=== PATIENT | female | born 1975 | race Caucasian/White ===

== ENCOUNTER 2018-07-19 15:13 | Emergency (ER) | payer MEDICARE, OTHER ==
[~2018-07-19] VITALS: Ht 144.8 cm; Wt 49.0 kg
[~2018-07-19 15:13] MED LIST: ARIP30 PO; CEPH500 PO; CLON.5 PO; DEXA.5 PO; ESTR2 PO; Fludrocortison0.1 MG PO; LEVSOD50 PO; Prozac20 MG PO; TOPI15C PO
== END 2018-07-19 16:11 | disposition home or self-care (01) ==
LOC: ER 15:13
DX: R56.9 Unspecified convulsions (principal); I95.9 Hypotension, unspecified; Z79.899 Other long term (current) drug therapy
CPT/HCPCS: 82947; 93005; 93010; 99284-25

== ENCOUNTER 2018-11-09 15:15 | Emergency (ER) | payer MEDICARE, OTHER ==
[~2018-11-09] VITALS: Ht 144.8 cm; Wt 49.9 kg
[2018-11-09 16:09] LABS: BASOPHILS ABSOLUTE AUTO 0.09 K/mm3 (0.00-0.23); BASOPHILS PERCENT AUTO 2 % (0-2); EOSINOPHILS ABSOLUTE AUTO 0.05 K/mm3 (0.00-0.68); EOSINOPHILS PERCENT AUTO 1 % (0-6); Hematocrit 37.1 % (33.0-51.0); Hemoglobin 12.3 g/dL (11.5-16.0); IMMATURE GRAN ABSOLUTE AUTO 0.01 K/mm3 (0.00-0.10); IMMATURE GRAN PERCENT AUTO 0 % (0-1); LYMPHOCYTES ABSOLUTE AUTO 2.02 K/mm3 (0.84-5.20); LYMPHOCYTES PERCENT AUTO 37 % (21-46); MONOCYTES PERCENT AUTO 6 % (4-13); Mean Corpuscular HGB 35.3 pg (26.0-34.0); Mean Corpuscular HGB Conc 33.2 g/dL (31.5-36.5); Mean Corpuscular Volume 107 fL (80-100); Mean Platelet Volume 10.3 fL (9.1-12.4); NEUTROPHILS ABSOLUTE AUTO 2.98 K/mm3 (1.96-9.15); NEUTROPHILS PERCENT AUTO 55 % (41-73); Platelet Count 190 K/mm3 (150-400); RDW Coefficient Variation 12.9 % (11.7-14.2); RDW Standard Deviation 50.4 fL (35.1-46.3); Red Blood Cell Count 3.48 M/mm3 (3.80-5.20); White Blood Cell Count 5.45 K/mm3 (4.00-11.30)
[2018-11-09 16:22] LABS: Source, Urine Catheter
[2018-11-09 16:28] LABS: International Normalized Ratio 0.93; Prothrombin Time Results 9.6 Sec (9.7-11.5)
[2018-11-09 16:28] LABS: Bilirubin, Urine Neg (Neg); Blood, Urine Neg (Neg); Glucose Qualitative, Urine Neg (Neg); Ketones, Urine Neg (Neg); Leukocyte Esterase, Urine Neg (Neg); Nitrite, Urine Neg (Neg); Protein, Urine Neg (Neg); Urobilinogen, Urine NORM (Normal)
[2018-11-09 16:29] LABS: Alanine Aminotransfer (ALT/SGP 22 U/L (12-78); Albumin, Blood 3.2 g/dL (3.4-5.0); Albumin/Globulin Ratio 0.9 (0.8-1.8); Alk Phos 47 U/L (50-136); Anion Gap 6 mmol/L (6-16); Aspartate Aminotrans (AST/SGOT 18 U/L (12-37); Bilirubin, Total 0.2 mg/dL (0.1-1.0); Blood Urea Nitrogen 17 mg/dL (8-24); Bun/Creatinine Ratio 25.3 (12.0-20.0); CO2, Blood 25 mmol/L (21-32); Calcium, Blood 8.6 mg/dL (8.5-10.1); Chloride, Blood 111 mmol/L (98-108); Creatinine, Blood 0.67 mg/dL (0.40-1.00); Globulin, Blood 3.4 g/dL (2.2-4.0); Glomerular Filtration Rate >60 (60-); Glucose, Blood 98 mg/dL (70-99); Potassium, Blood 3.8 mmol/L (3.5-5.5); Sodium, Blood 142 mmol/L (136-145); Total Protein, Blood 6.6 g/dL (6.4-8.2)
[2018-11-09 16:53] LABS: Appearance, Urine Clear (Clear); Color, Urine Yellow (P-Yellow)
== END 2018-11-09 17:12 | disposition home or self-care (01) ==
LOC: ER 15:15
PROVIDERS: Emergency Medicine; Physician Assistant
DX: R53.1 Weakness (principal); F20.9 Schizophrenia, unspecified; F31.9 Bipolar disorder, unspecified; Z79.899 Other long term (current) drug therapy
CPT/HCPCS: 36415; 70450; 71045; 80053; 81003; 85025; 85610; 93005; 93010; 99285-25; P9612

== ENCOUNTER 2019-09-02 18:00 | Inpatient (IN) | payer MEDICARE, OTHER ==
[~2019-09-02] VITALS: Ht 154.9 cm; Wt 45.1 kg
[2019-09-02 18:35] LABS: BASOPHILS ABSOLUTE AUTO 0.09 K/mm3 (0.00-0.23); BASOPHILS PERCENT AUTO 2 % (0-2); EOSINOPHILS ABSOLUTE AUTO 0.06 K/mm3 (0.00-0.68); EOSINOPHILS PERCENT AUTO 1 % (0-6); Hemoglobin 12.2 g/dL (11.5-16.0); IMMATURE GRAN ABSOLUTE AUTO 0.01 K/mm3 (0.00-0.10); IMMATURE GRAN PERCENT AUTO 0 % (0-1); LYMPHOCYTES ABSOLUTE AUTO 2.03 K/mm3 (0.84-5.20); LYMPHOCYTES PERCENT AUTO 45 % (21-46); MONOCYTES ABSOLUTE AUTO 0.28 K/mm3 (0.16-1.47); MONOCYTES PERCENT AUTO 6 % (4-13); Mean Corpuscular HGB 34.7 pg (26.0-34.0); Mean Corpuscular Volume 105 fL (80-100); Mean Platelet Volume 10.1 fL (9.1-12.4); NEUTROPHILS ABSOLUTE AUTO 2.03 K/mm3 (1.96-9.15); NEUTROPHILS PERCENT AUTO 45 % (41-73); Platelet Count 202 K/mm3 (150-400); RDW Coefficient Variation 12.7 % (11.7-14.2); RDW Standard Deviation 49.2 fL (35.1-46.3); Red Blood Cell Count 3.52 M/mm3 (3.80-5.20)
[2019-09-02] MEDS ORDERED: CLON.5 PO (18:43)
[2019-09-02 18:54] LABS: Alanine Aminotransfer (ALT/SGP 29 U/L (12-78); Albumin, Blood 3.2 g/dL (3.4-5.0); Albumin/Globulin Ratio 0.9 (0.8-1.8); Alk Phos 66 U/L (50-136); Anion Gap 4 mmol/L (6-16); Aspartate Aminotrans (AST/SGOT 20 U/L (12-37); Bilirubin, Total 0.2 mg/dL (0.1-1.0); Blood Urea Nitrogen 15 mg/dL (8-24); Bun/Creatinine Ratio 17.7 (12.0-20.0); CO2, Blood 26 mmol/L (21-32); Calcium, Blood 8.8 mg/dL (8.5-10.1); Chloride, Blood 110 mmol/L (98-108); Creatinine, Blood 0.85 mg/dL (0.40-1.00); Globulin, Blood 3.7 g/dL (2.2-4.0); Glomerular Filtration Rate >60 (60-); Glucose, Blood 97 mg/dL (70-99); Magnesium, Blood 2.1 mg/dL (1.6-2.4); Potassium, Blood 3.7 mmol/L (3.5-5.5); Sodium, Blood 140 mmol/L (136-145); Total Protein, Blood 6.9 g/dL (6.4-8.2)
[2019-09-02] MEDS ORDERED: ACET325 PO (21:47)
[2019-09-02] MEDS ORDERED: IBUP400 PO (21:47)
[2019-09-02] MEDS ORDERED: FERSU300 PO (21:49)
[2019-09-02] MEDS ORDERED: MIRALAX17 GM PO (21:50)
--- NOTE | 2019-09-02 22:00 | NUR ---
ADMISSION PT ARRIVES TO PCU 7 AT APPROXIMATELY 2100 ACCOMPANIED BY HER PARENTS. PT HAS DOWN SYNDROME AND IS ALERT AND ORIENTED TO SELF, MONTH, FAMILY AND FOLLOWING DIRECTIONS. PARENTS ARE PRIMARY CAREGIVERS AND MOTHER IS HEALTHCARE [employer]OXY. PT IS SLID TO HOSPITAL BED, BUT IS ABLE TO AMBULATE WITH ONE PERSON ASSIST. MOTHER STATES THAT PATIENT FALLS FREQUENTLY AT HOME DUE TO ISSUES WITH SPINE THAT CAUSE PATIENT TO WALK BENT AT THE WAIST, STATES THAT SHE DOES NOT WALK WITH ASSISTIVE DEVICES. MOTHER STATES THAT THE PATIENT HAS MULTIPLE PETIT MAL SEIZURES THROUGHOUT THE DAY, BUT DOES NOT FREQUENTLY HAVE GRAND MAL SEIZURES. STATES THAT SYMPTOMS OF HER PETIT MAL SEIZURES CAUSE HER TO BE "SPACEY" OR "ZONE OUT". PATIENT AND FAMILY ORIENTED TO ROOM, CALL LIGHT SYSTEM AND RAPID RESPONSE TEAM NOTIFICATION. ENCOURAGED TO CALL FOR ALL NEEDS AND IF ANY SEIZURE-LIKE ACTIVITY NOTED. PT STRAIGHT CATHETERIZED PER PHYSICIAN ORDER. DR MORALES CONTACTED AND ASKED IF PARENTS COULD GIVE PATIENT MEDICATIONS FROM HOME THAT WERE BROUGHT IN- PHYSICIAN OK'D FOR REGULAR NIGHT TIME MEDS TO BE GIVEN AT THIS TIME- MEDS GIVEN WERE ABILIFY, KLONIPIN, AND TOPIRAMATE. DR MORALES IN TO ASSESS PATIENT AT THIS TIME. WILL CONTINUE WITH ADMISSION AND MONITORING. BE IN LOW POSITION, CALL LIGHT IN REACH. BED ALARM SET FOR SAFETY.
[2019-09-02 22:59] LABS: Source, Urine Catheter
[2019-09-02 23:07] LABS: Bilirubin, Urine Neg (Neg); Blood, Urine Neg (Neg); Glucose Qualitative, Urine Neg (Neg); Ketones, Urine Neg (Neg); Leukocyte Esterase, Urine Neg (Neg); Nitrite, Urine Neg (Neg); Protein, Urine Neg (Neg); Urobilinogen, Urine NORM (Normal)
[2019-09-02 23:17] LABS: Appearance, Urine Clear (Clear); Color, Urine Yellow (P-Yellow)
[2019-09-03 03:50] LABS: Hematocrit 34.5 % (33.0-51.0); Hemoglobin 11.5 g/dL (11.5-16.0); Mean Corpuscular HGB Conc 33.3 g/dL (31.5-36.5); Mean Corpuscular Volume 105 fL (80-100); Mean Platelet Volume 10.2 fL (9.1-12.4); Platelet Count 166 K/mm3 (150-400); RDW Coefficient Variation 12.7 % (11.7-14.2); RDW Standard Deviation 49.3 fL (35.1-46.3); Red Blood Cell Count 3.29 M/mm3 (3.80-5.20); White Blood Cell Count 3.82 K/mm3 (4.00-11.30)
[2019-09-03 04:17] LABS: Alanine Aminotransfer (ALT/SGP 26 U/L (12-78); Albumin, Blood 2.8 g/dL (3.4-5.0); Albumin/Globulin Ratio 0.9 (0.8-1.8); Alk Phos 53 U/L (50-136); Anion Gap 7 mmol/L (6-16); Aspartate Aminotrans (AST/SGOT 17 U/L (12-37); Bilirubin, Total 0.3 mg/dL (0.1-1.0); Blood Urea Nitrogen 13 mg/dL (8-24); Bun/Creatinine Ratio 19.7 (12.0-20.0); CO2, Blood 25 mmol/L (21-32); Chloride, Blood 111 mmol/L (98-108); Creatinine, Blood 0.66 mg/dL (0.40-1.00); Globulin, Blood 3.1 g/dL (2.2-4.0); Glomerular Filtration Rate >60 (60-); Glucose, Blood 89 mg/dL (70-99); Potassium, Blood 3.7 mmol/L (3.5-5.5); Sodium, Blood 143 mmol/L (136-145); Total Protein, Blood 5.9 g/dL (6.4-8.2)
--- NOTE | 2019-09-03 06:45 | NUR ---
SHIFT SUMMARY PT REMAINS ALERT AND ORIENTED TO SELF AND FAMILY. VSS. VERY PLEASANT AND COOPERATIVE WITH CARE. NO ACUTE CHANGES THROUGHOUT THE NIGHT. PT HAS RESTED WELL, WAKING EASILY FOR CARE. FATHER HAS REMAINED AT BEDSIDE THROUGHOUT THE SHIFT. NO SEIZURE- LIKE ACTIVITY NOTED THROUGHOUT THE NIGHT. NS CONTINUES TO INFUSE @ 75 ML/HR FOR ONE LITER, PT TOLERATING WELL. PT CONTINUES TO HAVE IMPAIRED GAIT AND REQUIRES ONE PERSON ASSIST WITH AMBULATION. NO OTHER CHANGES NOTED FROM INITIAL ASSESSMENT. WILL CONTINUE TO MONITOR AND REPORT TO ONCOMING SHIFT RN. BED IN LOW POSITION, CALL LIGHT IN REACH. BED ALARM SET FOR SAFETY.
--- NOTE | 2019-09-03 18:08 | NUR ---
SHIFT SUMMARY PT ALERT AND ORIENTED TO SELF AND FAMILY. PT ABLE TO FOLLOW SIMPLE DIRECTIONS. VS STABLE. O2 SATS HAVE REMAIN ABOVE 90% ON RA. BP STABLE. PT LETHARGIC TODAY PER FAMILY. DISCUSSED THIS WITH DR. TEIXEIRA AND HE REPORTS IT IS A SIDE EFFECT OF KEPPRA. PT HAD EEG TODAY. WILL CONTINUE TO MONITOR AND REPORT TO ONCOMING RN. CALL LIGHT IN REACH. FAMILY AT BEDSIDE.
--- NOTE | 2019-09-04 06:07 | NUR ---
SHIFT SUMMARY PT HAS REMAINED AT BASELINE MENTATION THROUGHOUT THE NIGHT. VSS. VERY PLEASANT AND COOPERATIVE WITH CARE. PT FATHER HAS REMAINED AT BEDSIDE. FAMILY CONCERNED AT START OF SHIFT WITH MENTATION CHANGES THROUGHOUT THE AFTERNOON, STATING THAT THE PATIENT HAD BEEN HALLUCINATING AND AGITATED. FAMILY PROVIDED INFORMATION ON MEDICATIONS AND POTENTIAL SIDE EFFECTS. ALSO ENCOURAGED TO DIRECT QUESTIONS ABOUT CERTAIN MEDICATIONS AND INTERACTIONS TO THE PHYSICIAN UPON ROUNDING. PT HAS HAD NO SEIZURE ACTIVITY NOTED THROUGHOUT THE NIGHT. NO SIGNS OR REPORTS OF HALLUCINATIONS THROUGHOUT SHIFT. PT CONTINUES TO AMBULATE WITH ONE PERSON ASSIST TO BATHROOM. NO OTHER CHANGES NOTED FROM INITIAL ASSESSMENT. WILL CONTINUE TO MONITOR AND REPORT TO ONCOMING SHIFT RN. BED IN LOW POSITION, CALL LIGHT IN REACH. BED ALARM SET FOR SAFETY.
--- NOTE | 2019-09-04 08:00 | NUR ---
pt laying in bed family in room, she is a/ox2, pleasant and cooperative with care, follows commands well, denies pain, lungs are clear t/o, resp even and unlabored, no cough noted, is currently on r/a, hrr, tele in place running sr per monitor, see strip, no jude noted, ppp+2, cap refill <3sec, vs stable, afebrile, iv site is clear and patent, btx4, abd flat soft nontender, voids without diff, skin c/w/d, maew, jackie, call light in reach.
[2019-09-04] MEDS ORDERED: LEVE500 PO (14:17)
--- NOTE | 2019-09-04 15:42 | NUR ---
pt has been discharged to home, went over discharge instructions with her parents they verbalized understanding, new medication was faxed to [facility], iv removed intact, left via wheelchair with family and automobile parts assembler in attendence.
== END 2019-09-04 15:03 | disposition home or self-care (01) | DRG 101 ==
LOC: ER 18:00 → PCU 19:37 → ER 19:37 → PCU 20:51
PROVIDERS: Emergency Medicine; ADMIT Internal Medicine
DX: G40.409 Other generalized epilepsy and epileptic syndromes, not intractable, without status epilepticus (principal); F20.9 Schizophrenia, unspecified; F31.9 Bipolar disorder, unspecified; M48.00 Spinal stenosis, site unspecified; Q90.9 Down syndrome, unspecified
CPT/HCPCS: 36415; 70450; 71046; 80053; 80201; 81003; 83735; 84484; 85025; 85027; 93005; 93010; 95819; 99285-25; J1953; J7030

== ENCOUNTER 2020-08-04 13:10 | Emergency (ER) | payer MEDICARE, OTHER ==
[~2020-08-04] VITALS: Ht 147.3 cm; Wt 49.0 kg
[~2020-08-04 13:10] MED LIST changes: +ACET325 PO; -ARIP30 PO; -CLON.5 PO; -ESTR2 PO; +FERSU300 PO; +IBUP400 PO; +LEVE500 PO; +MIRALAX17 GM PO; +NAYZILAM5 MG/0.1 M; -Prozac20 MG PO; +TOPI25 PO; +TOPI50 PO
[2020-08-04 15:22] LABS: Source, Urine Catheter
[2020-08-04 15:26] LABS: Appearance, Urine Clear (Clear); Bilirubin, Urine Neg (Neg); Blood, Urine Neg (Neg); Color, Urine Yellow (P-Yellow); Glucose Qualitative, Urine Neg (Neg); Ketones, Urine Neg (Neg); Leukocyte Esterase, Urine Neg (Neg); Nitrite, Urine Neg (Neg); Protein, Urine Neg (Neg); Specific Gravity, Urine 1.015 (1.003-1.022); Urobilinogen, Urine NORM (Normal)
[2020-08-04 15:58] LABS: BASOPHILS ABSOLUTE AUTO 0.08 K/mm3 (0.00-0.23); BASOPHILS PERCENT AUTO 2 % (0-2); EOSINOPHILS ABSOLUTE AUTO 0.06 K/mm3 (0.00-0.68); EOSINOPHILS PERCENT AUTO 2 % (0-6); Hematocrit 38.6 % (33.0-51.0); Hemoglobin 12.6 g/dL (11.5-16.0); IMMATURE GRAN ABSOLUTE AUTO 0.01 K/mm3 (0.00-0.10); IMMATURE GRAN PERCENT AUTO 0 % (0-1); LYMPHOCYTES ABSOLUTE AUTO 1.93 K/mm3 (0.84-5.20); LYMPHOCYTES PERCENT AUTO 54 % (21-46); MONOCYTES ABSOLUTE AUTO 0.27 K/mm3 (0.16-1.47); MONOCYTES PERCENT AUTO 8 % (4-13); Mean Corpuscular HGB 34.1 pg (26.0-34.0); Mean Corpuscular HGB Conc 32.6 g/dL (31.5-36.5); Mean Corpuscular Volume 104 fL (80-100); Mean Platelet Volume 10.1 fL (9.1-12.4); NEUTROPHILS ABSOLUTE AUTO 1.25 K/mm3 (1.96-9.15); NEUTROPHILS PERCENT AUTO 35 % (41-73); Platelet Count 176 K/mm3 (150-400); RDW Coefficient Variation 12.1 % (11.7-14.2); RDW Standard Deviation 47.2 fL (35.1-46.3)
[2020-08-04 16:14] LABS: Alanine Aminotransfer (ALT/SGP 25 U/L (12-78); Albumin, Blood 3.3 g/dL (3.4-5.0); Albumin/Globulin Ratio 0.9 (0.8-1.8); Alk Phos 67 U/L (50-136); Anion Gap 3 mmol/L (6-16); Aspartate Aminotrans (AST/SGOT 33 U/L (12-37); Bilirubin, Total 0.3 mg/dL (0.1-1.0); Blood Urea Nitrogen 14 mg/dL (8-24); Bun/Creatinine Ratio 17.6 (12.0-20.0); CO2, Blood 28 mmol/L (21-32); Calcium, Blood 8.9 mg/dL (8.5-10.1); Chloride, Blood 114 mmol/L (98-108); Creatinine, Blood 0.79 mg/dL (0.40-1.00); Globulin, Blood 3.5 g/dL (2.2-4.0); Glomerular Filtration Rate >60 (60-); Glucose, Blood 92 mg/dL (70-99); Potassium, Blood 3.9 mmol/L (3.5-5.5); Sodium, Blood 145 mmol/L (136-145); Total Protein, Blood 6.8 g/dL (6.4-8.2)
[2020-08-04] MEDS ORDERED: CLON.5 PO ×2 (17:17)
[2020-08-04] MEDS ORDERED: ARIP30 PO (17:17)
[2020-08-04] MEDS ORDERED: Prozac20 MG PO (17:18)
[2020-08-04] MEDS ORDERED: EUTHYROX50 MC1 PO (17:18)
[2020-08-04] MEDS ORDERED: ESTR2 PO (17:19)
== END 2020-08-04 18:45 | disposition home or self-care (01) ==
LOC: ER 13:10
PROVIDERS: Emergency Medicine
DX: R53.1 Weakness (principal); Q90.9 Down syndrome, unspecified; F20.9 Schizophrenia, unspecified; Z79.899 Other long term (current) drug therapy
CPT/HCPCS: 36415; 51701; 70450; 80053; 81003; 85025; 96360-59; 96361-59; 99285-25; A9270; J7030